=== PATIENT | female | born 1990 | race Caucasian/White ===

== ENCOUNTER → 2021-07-15 14:16 | Outpatient (CLI) | payer OTHER, SELFPAY ==
[2021-07-15 14:43] LABS: Appearance Urine UA CLEAR; Bilirubin Urine UA NEGATIVE (NEGATIVE); Color Urine UA YELLOW; Glucose Urine UA 3+ g/dL (Negative); Ketones Urine UA TRACE (NEGATIVE); Leukocyte Esterase Urine UA NEGATIVE (NEGATIVE); Nitrite Urine UA NEGATIVE (Negative); Occult Blood Urine UA NEGATIVE (Negative); Protein Urine UA NEGATIVE (Negative); Urobilinogen Urine UA 0.2 E.U./dL (0.2); pH Urine UA 5.5 (4.5-8.0)
[2021-07-15 14:49] LABS: Bacteria Urine None Seen; RBC Urine None Seen (0-5/HPF); WBC Urine 0-1/HPF (0-5/HPF)
[2021-07-15 14:50] LABS: Culture Indicated Urine Cult Not Indicated
[2021-07-15 14:52] LABS: Add Manual Diff / Slide Review NO; Basophils Absolute Auto 0 /uL (0-100); Basophils Percent Auto 0.2 % (0-2); Eosinophils Absolute Auto 100 /uL (0-450); Eosinophils Percent Auto 0.7 % (2-4); Hematocrit 37.2 % (36-46); Hemoglobin 12.9 g/dL (12.0-16.0); Lymphocytes Absolute Auto 2500 /uL (1100-4500); Lymphocytes Percent Auto 33.1 % (25-40); Mean Corpuscular HGB Conc 34.7 % (30-36); Mean Corpuscular Hemoglobin 30.6 PG (26-34); Mean Corpuscular Volume 88.1 fL (80-100); Monocytes Absolute Auto 400 /uL (0-900); Monocytes Percent Auto 5.6 % (3-14); Neutrophils Absolute Auto 4600 /uL (1500-7000); Neutrophils Percent Auto 60.4 % (50-75); Platelet Count 359 X10^3/uL (150-400); Red Blood Cell Count 4.22 X10^6/uL (4.0-5.2); Red Cell Distribution Width 12.3 % (11.6-14.8); White Blood Cell Count 7.6 X10^3/uL (4.5-11.0)
[2021-07-15 15:25] LABS: Alanine Aminotransferase 21 IU/L (<35); Albumin 4.8 g/dL (3.5-5.0); Albumin Globulin Ratio 1.4 (1.0-2.8); Alkaline Phosphatase 48 U/L (38-126); Aspartate Aminotransferase 24 IU/L (14-36); BUN Creatinine Ratio 19.7 (6-22); Bilirubin Total 0.6 mg/dL (0.2-1.3); Blood Urea Nitrogen 13 mg/dL (7-17); Calcium 9.9 mg/dL (8.4-10.2); Carbon Dioxide 30 mmol/L (22-32); Chloride 101 mmol/L (98-107); Estimated Glomerular Filt Rate > 60.0 mL/min (>60); Globulin 3.4 g/dL (1.7-4.1); Glucose 75 mg/dL (70-100); HEMOLYSIS < 15 (0-50); Sodium 138 mmol/L (137-145); Total Protein 8.2 g/dL (6.3-8.2)
[2021-07-15 15:40] LABS: Free T3, Triiodothyronine Free 3.19 pg/mL (2.77-5.27); Free T4, Direct Thyroxine 0.83 ng/dL (0.78-2.19)
[2021-07-15 15:54] LABS: Thyroid Stimulating Hormone 2.46 uIU/mL (0.47-4.68)
[2021-07-16 08:10] LABS: HSV 2 IGG AB < 0.91 index (0.00-0.90); HSV1IGG 6.45 index (0.00-0.90); RPR Screen Non Reactive (Non Reactive)
[2021-07-16 22:13] LABS: HSV I/II IgM 1.53 Ratio (0.00-0.90)
[2021-07-18 16:15] LABS: Hepatitis B Surface Antigen NEGATIVE s/c (NEGATIVE)
[2021-07-18 16:31] LABS: HIV 1 & 2 Ab/Ag 4th Gen Combo NEGATIVE (NEGATIVE); Hep C Virus Ab w/Reflex Quant NEGATIVE s/c (NEGATIVE)
== END ==
PROVIDERS: PCP Nurse Practitioner; Referring Provider Nurse Practitioner; Visit Provider Nurse Practitioner
DX: Z00.00 Encounter for general adult medical examination without abnormal findings (principal); Z20.2 Contact with and (suspected) exposure to infections with a predominantly sexual mode of transmission; R10.9 Unspecified abdominal pain; N64.4 Mastodynia
CPT/HCPCS: 36415; 80053; 81001; 84439; 84443; 84481; 85025; 86592; 86694; 86695; 86696; 86803; 87340; 87389

== ENCOUNTER → 2021-07-19 17:06 | Outpatient (CLI) | payer OTHER, SELFPAY ==
[2021-07-19 18:30] LABS: Cholesterol 226 mg/dL (140-199); HDL Cholesterol 68 mg/dL (40-60); LDL Cholesterol Calculated 142 mg/dL (<100); Triglycerides 78 mg/dL (35-150)
== END ==
PROVIDERS: PCP Nurse Practitioner; Referring Provider Nurse Practitioner; Visit Provider Nurse Practitioner
DX: Z13.220 Encounter for screening for lipoid disorders (principal)
CPT/HCPCS: 36415; 80061

== ENCOUNTER → 2021-07-20 07:36 | Outpatient (CLI) | payer OTHER, SELFPAY ==
--- NOTE | 2021-07-20 07:38 | DI.US.S_ITS ---
PROCEDURE: US PELVIC COMPLETE INDICATIONS: PAIN; CHECK IUD PLACEMENT TECHNIQUE: Real-time scanning was performed of the pelvic organs, with image documentation. Additional endovaginal scanning was necessary due to incomplete visualization of the adnexal and endometrial structures by transabdominal scanning. COMPARISON: None. FINDINGS: Uterus: Uterus is anteverted and normal in size at 6.8 x 2.8 x 5.0 cm. The myometrium is homogeneous. The endometrium measures 3.2 mm combined thickness. An IUD is situated appropriately in the fundal endometrium. The strings are not identified within the cervix on these images. The distal endocervix is partially open and contains a moderate amount of simple fluid. Ovaries: The right ovary measures 3.7 x 1.9 x 1.7 cm, with a calculated ovarian volume of 6.2 cc. The left ovary measures 3.1 x 2.3 x 2.6 cm, with a calculated ovarian volume of 9.6 cc. The ovaries have a normal sonographic appearance. Less than 12 follicles can be seen in each ovary. No adnexal masses are seen. Other: No pathologic free abdominal or pelvic fluid. IMPRESSION: 1. Adequate location of IUD, although the strings are not seen traversing the cervix. 2. Partially open cervix containing a moderate amount of simple fluid. Correlate clinically and with Pap smear if not previously performed. We strive to produce accurate, complete, and clear reports of imaging services. To assist us in improving patient care, this report was composed using standard report templates and voice recognition software. Therefore, it may contain abnormal punctuation, insertions and/or omissions. Occasional wrong-word or sound-alike substitutions may occur. Though we review the report and make efforts to correct it, we do recommend that the report be read carefully in proper context to recognize any text inaccuracies. Dictated by: Xochitl Morillo M.D. on 07/20/2021 at 8:21 Approved by: Xochitl Morillo M.D. on 07/20/2021 at 8:48
== END ==
PROVIDERS: PCP Nurse Practitioner; Referring Provider Nurse Practitioner; Visit Provider Nurse Practitioner
DX: Z00.00 Encounter for general adult medical examination without abnormal findings (principal); R10.30 Lower abdominal pain, unspecified; Z11.51 Encounter for screening for human papillomavirus (HPV); Z97.5 Presence of (intrauterine) contraceptive device
CPT/HCPCS: 76830; 76856

== ENCOUNTER → 2021-08-03 13:10 | Outpatient (CLI) | payer OTHER, SELFPAY ==
--- NOTE | 2021-08-03 13:12 | DI.MG.S_ITS ---
BILATERAL DIGITAL DIAGNOSTIC MAMMOGRAM 3D/2D: 08/03/2021 CLINICAL: Baseline exam. Mastodynia. No prior exams were available for comparison. The tissue of both breasts is extremely dense, which lowers the sensitivity of mammography. No significant masses, calcifications, or other findings are seen in either breast. Specifically, no finding to explain the patient's pain. IMPRESSION: INCOMPLETE: NEEDS ADDITIONAL IMAGING EVALUATION There is no abnormality seen in the left breast to correspond with the pain in the superior lateral quadrant, however, ultrasound is recommended. Ultrasound could not be performed the same day. The patient is scheduled to return the following day at 10:30 for this exam. This exam was interpreted at Station ID: [id number]. NOTE: For mammograms, a report in lay terms will be sent to the patient. Approximately 15% of breast malignancies will not be visualized mammographically. In the management of a palpable breast mass, a negative mammogram must not discourage biopsy of a clinically suspicious lesion. Electronically Signed By: Xochitl morrow/:08/03/2021 14:31:35 ACR BI-RADS Category 0: Incomplete [id number]
== END ==
PROVIDERS: PCP Nurse Practitioner; Referring Provider Nurse Practitioner; Visit Provider Nurse Practitioner
DX: N64.4 Mastodynia (principal); R92.2 Inconclusive mammogram
CPT/HCPCS: 77066; G0279

== ENCOUNTER → 2021-08-04 10:05 | Outpatient (CLI) | payer OTHER, SELFPAY ==
--- NOTE | 2021-08-04 10:06 | DI.US.S_ITS ---
PROCEDURE: US BREAST LT LIMITED COMPARISON: None. INDICATIONS: left breast pain FINDINGS: IMPRESSION: Dictated by: Frank Wolf M.D. on 08/04/2021 at 10:55 Approved by: Frank Wolf M.D. on 08/04/2021 at 11:09
--- NOTE | 2021-08-04 10:41 | DI.US.S_ITS ---
Patient Name: BEVERLY SIMPSON date: 1990 Sex: F Attending Physician: Spenser Indications: Date: 08/04/2021 10:52 At the request of: JUAN JALLOH Procedure: US breast LT limited ULTRASOUND OF LEFT BREAST: 08/04/2021 CLINICAL: Focal left breast pain. Comparison is made to exam dated: 08/03/2021 [facility]. Color flow and real-time ultrasound of the left breast were performed. Terrell scale images of the real-time examination were reviewed. No significant abnormalities were seen sonographically in the left breast. IMPRESSION: NEGATIVE There is no sonographic evidence of malignancy. This exam was interpreted at Station ID: [id number]. Electronically Signed By: Frank Wolf M.D., jr/sai:08/04/2021 11:09:18 letter sent: Normal Exam Ultrasound BI-RADS: 1 Negative
== END ==
PROVIDERS: PCP Nurse Practitioner; Referring Provider Nurse Practitioner; Visit Provider Nurse Practitioner
DX: N64.4 Mastodynia (principal)
CPT/HCPCS: 76642